=== PATIENT | male | born 1985 | race Asian ===

== ENCOUNTER 2016-10-18 20:19 | Emergency (ER) | payer BC ==
[~2016-10-18] VITALS: Ht 180.3 cm; Wt 86.2 kg
[2016-10-18 20:30] VITALS: BP 126/82
[2016-10-18] MEDS ORDERED: Lidocaine 1% 10mg/ml/Epi 0.005mg/ml 30ml vial INJ ONE (20:45)
[2016-10-18] MEDS ORDERED: Acetaminophen 500mg (ES) tab ORAL ONE (20:45)
--- NOTE | 2016-10-18 21:01 | Emergency Room Report ---
History of Present Illness General Chief Complaint: Head, Face, Neck Trauma Source: Patient Present Illness HPI Patient was fixing his roof as a branch hit the side of his house. The ladder got out of control and came down and hit the top his head. Bleeding. He did not lose consciousness. His tetanus is up-to-date. Pain is 5/5, sharp and aching, not radiating. No neck pain. No fevers, URI, NVD. Allergies: Coded Allergies: No Known Allergies (Unverified , 10/18/16) Patient History Past Medical History: see triage record Social History: Denies: alcohol use, drug use, smoking Social History Narrative [employer] [facility] Reviewed Nursing Documentation: PMH: Agreed, PSxH: Agreed Nursing Documentation-PMH Past Medical History: No Stated History Review of Systems All Other Systems: negative except mentioned in HPI Physical Exam Vital Signs Date Time Temp Pulse Resp B/P Pulse Ox O2 Delivery O2 Flow Rate FiO2 10/18/16 20:23 98.8 104 18 128/86 97 Room Air Sp02 EP Interpretation: reviewed, normal General Appearance: well appearing, no apparent distress Head: normocephalic, other - scalp lac top of head Eyes: bilateral eye EOMI, bilateral eye PERRL, bilateral eye normal inspection ENT: hearing grossly normal, normal voice, moist mucus membranes Neck: full range of motion, supple, no bony tend Respiratory: chest non-tender, no respiratory distress, speaking full sentences Cardiovascular #1: regular rate, rhythm Cardiovascular #2: 2+ radial (L) Gastrointestinal: normal inspection Musculoskeletal: back normal, digits/nails normal, gait/station normal, normal range of motion, no calf tenderness Neurologic: alert, oriented x3, 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, motor strength/tone normal, DTRs symmetric, sensory intact, cerebellar normal, normal gait, speech normal Psychiatric: mood/affect normal Skin: laceration - top of head = semicircle Procedures Laceration/Wound Repair Laceration/Wound Repair : Consent: Verbal Wound Location: head Wound's Depth, Shape: superficial Wound Length (cm): 2 Wound Explored: clean Irrigated w/ Saline (ccs): 40 Betadine Prep?: Yes Anesthesia: Lidocaine w/ Epi Wound Debrided: none Wound Repaired With: becka Layer Closure?: No Sterile Dressing Applied?: No Patient Tolerated: Well Complications: None Medical Decision Making Diagnostic Impression: Primary Impression: Head injury Additional Impression: Scalp laceration Qualified Codes: S01.01XA - Laceration without foreign body of scalp, initial encounter ER Course Pt with head contusion and laceration of scalp. Based on hx and physical, no imaging indicated. Tylenol given. Becka applied and tolerated well. Bleeding controlled. Patient stable for outpatient observation and treatment. Last Vital Signs Date Time Temp Pulse Resp B/P Pulse Ox O2 Delivery O2 Flow Rate FiO2 10/18/16 21:15 98.2 70 17 122/81 99 Room Air Status: improved Disposition: HOME, SELF-CARE Condition: Improved Scripts Bacitracin (Bacitracin) 28.4 Gm Oint...g. 1 APPLIC TOPIC BID, #10 GM Prov: Pietro Nieto M.D. 10/18/16 Pietro Nieto M.D. Oct 18, 2016 21:01
[2016-10-18] MEDS ORDERED: BACITRACIN15 GM TOPIC (21:04)
[2016-10-18 21:15] VITALS: BP 122/81
[2016-10-18] MEDS ORDERED: Bacitracin Oint UD TOPIC ONE (21:15)
== END 2016-10-18 21:15 | disposition home or self-care (01) ==
LOC: EMR 20:42
DX: S09.8XXA Other specified injuries of head, initial encounter (principal); W22.8XXA Striking against or struck by other objects, initial encounter; Y93.9 Activity, unspecified; Y99.9 Unspecified external cause status; S01.01XA Laceration without foreign body of scalp, initial encounter

== ENCOUNTER 2016-10-26 16:11 | Emergency (ER) | payer BC, OTHER ==
[~2016-10-26] VITALS: Ht 180.3 cm; Wt 86.2 kg
[~2016-10-26 16:11] MED LIST: BACITRACIN15 GM TOPIC
[2016-10-26 16:31] VITALS: BP 133/72
--- NOTE | 2016-10-26 16:31 | Emergency Room Report ---
History of Present Illness General Chief Complaint: Wound Recheck/Suture Removal Source: Patient Present Illness HPI Patient is a 30-year-old male who presented for staple removal. Patient had the laceration to scalp stapled approximately week ago. He denies any fever or discharge from the wound. He denied any headache or nausea. Allergies: Coded Allergies: No Known Allergies (Unverified , 10/18/16) Patient History Past Medical History: see triage record Reviewed Nursing Documentation: PMH: Agreed, PSxH: Agreed Nursing Documentation-PMH Past Medical History: No Stated History Review of Systems All Other Systems: negative except mentioned in HPI Physical Exam Vital Signs Date Time Temp Pulse Resp B/P Pulse Ox O2 Delivery O2 Flow Rate FiO2 10/26/16 16:21 99.0 69 16 133/72 99 Room Air General Appearance: well appearing, no apparent distress, alert, GCS 15, non- toxic Head: normocephalic, atraumatic ENT: hearing grossly normal, normal voice Neck: full range of motion, supple Respiratory: no respiratory distress, speaking full sentences Gastrointestinal: normal inspection Musculoskeletal: no calf tenderness Neurologic: normal inspection, alert, oriented x3, 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 Differential diagnosis included was not limited to infected wound, nonhealed wound, neuroma, healed wound. The becka were removed. The patient is advised to continue applying bacitracin ointment. The patient is advised to have wound rechecked as needed Last Vital Signs Date Time Temp Pulse Resp B/P Pulse Ox O2 Delivery O2 Flow Rate FiO2 10/26/16 16:21 99.0 69 16 133/72 99 Room Air Status: improved Disposition: HOME, SELF-CARE Condition: Stable Patient Instructions: Wound Closure Removal Frankie Rodríguez October 26, 2016 16:31
== END 2016-10-26 16:39 | disposition home or self-care (01) ==
LOC: EMR 16:33
DX: S01.01XD Laceration without foreign body of scalp, subsequent encounter (principal); Z48.02 Encounter for removal of sutures
CPT/HCPCS: 99282